=== PATIENT | female | born 1950 | race Caucasian/White ===

== ENCOUNTER 2019-01-16 12:31 | Emergency (ER) | payer MEDICARE ==
[~2019-01-16] VITALS: Ht 162.6 cm; Wt 62.0 kg
[~2019-01-16 12:31] MED LIST: AMOX-580 PO
[2019-01-16 13:07] VITALS: BP 137/76
[2019-01-16] MEDS ORDERED: METR-159 PO (14:33)
[2019-01-16] MEDS ORDERED: CIPR-230 PO (14:33)
== END 2019-01-16 14:49 | disposition home or self-care (01) ==
LOC: ER 12:32
DX: T78.40XA Allergy, unspecified, initial encounter (principal); I10 Essential (primary) hypertension; Z88.2 Allergy status to sulfonamides; Z88.1 Allergy status to other antibiotic agents; X58.XXXA Exposure to other specified factors, initial encounter
CPT/HCPCS: 99283

== ENCOUNTER 2021-09-17 17:31 | Emergency (ER) | payer MEDICARE ==
[~2021-09-17] VITALS: Ht 162.6 cm; Wt 63.6 kg
[2021-09-17 17:55] VITALS: BP 163/64
[2021-09-17] MEDS ORDERED: HYDR-3965 PO (18:30)
== END 2021-09-18 08:31 | disposition home or self-care (01) ==
LOC: ER 17:32
DX: S92.354A Nondisplaced fracture of fifth metatarsal bone, right foot, initial encounter for closed fracture (principal); M25.571 Pain in right ankle and joints of right foot; I10 Essential (primary) hypertension; Z98.890 Other specified postprocedural states; Z88.2 Allergy status to sulfonamides; Z88.1 Allergy status to other antibiotic agents; Z79.899 Other long term (current) drug therapy; X58.XXXA Exposure to other specified factors, initial encounter; Y93.89 Activity, other specified; Y92.89 Other specified places as the place of occurrence of the external cause; Y99.8 Other external cause status
CPT/HCPCS: 29505; 73630; 99283